=== PATIENT | female | born 1985 | race Caucasian/White ===

== ENCOUNTER 2017-01-04 00:41 | Emergency (ER) | payer OTHER ==
[~2017-01-04] VITALS: Ht 172.7 cm; Wt 120.0 kg
[2017-01-04 01:18] LABS: EOSINOPHIL (%) 0.9 % (0-5); EOSINOPHIL COUNT 0.2 K/uL (0-0.3); HEMATOCRIT 37.6 % (36.0-46.0); IMMATURE GRANULOCYTE (%) 1.3 % (0.0-0.7); IMMATURE GRANULOCYTE COUNT 0.2 K/uL; INSTRUMENT ABS NEUTROPHIL CT 15.6 K/uL; LYMPHOCYTE COUNT 1.7 K/uL (1.0-2.8); MCH 28.2 PG (29.0-34.0); MCHC 33.2 G/DL (30.0-36.0); MCV 84.9 FL (83-99); MEAN PLAT.VOLUME 11.1 uM^3 (9.5-12.4); MONOCYTE (%) 4.2 % (3-12); MONOCYTE COUNT 0.8 K/uL (0-0.8); NEUTROPHIL (%) 84.1 % (45-76); NEUTROPHIL COUNT 15.6 K/uL (1.8-6.4); PLATELET COUNT 224 K/uL (156-360); RBC DIS.WIDTH-CV 12.7 % (11.8-14.6); RBC DIS.WIDTH-SD 38.8 % (39-53); RED BLOOD COUNT 4.43 M/uL (3.80-5.20); WHITE BLOOD COUNT 18.5 K/uL (4.1-10.2)
[2017-01-04 01:28] LABS: CHLORIDE 107 mEq/L (99-109); POTASSIUM 3.9 mEq/L (3.7-5.4); SODIUM 138 mEq/L (136-147)
[2017-01-04 01:29] LABS: GLUCOSE 93 mg/dL (70-99)
[2017-01-04 01:31] LABS: ANION GAP 7 MEQ/L (2-14)
[2017-01-04 01:33] LABS: GFR ESTIMATE (CALCULATED) > 59 mL/min/
[2017-01-04 01:34] LABS: UREA NITROGEN (BUN) 7 mg/dL (9-23)
[2017-01-04 01:41] LABS: QUANTITATIVE HCG 7149.8 MIU/ML
[2017-01-04 02:16] VITALS: BP 121/67
== END 2017-01-04 02:17 | disposition home or self-care (01) ==
LOC: EME 00:41
PROVIDERS: Emergency Medicine
DX: O9A.212 Injury, poisoning and certain other consequences of external causes complicating pregnancy, second trimester (principal); T50.995A Adverse effect of other drugs, medicaments and biological substances, initial encounter; R23.2 Flushing; R00.2 Palpitations; O99.352 Diseases of the nervous system complicating pregnancy, second trimester; G35 Multiple sclerosis; O99.512 Diseases of the respiratory system complicating pregnancy, second trimester; J45.909 Unspecified asthma, uncomplicated; Z3A.26 26 weeks gestation of pregnancy
CPT/HCPCS: 76805; 80048; 84702; 85025; 93005; 99281; 99283

== ENCOUNTER 2017-04-11 05:40 | Inpatient (IN) | payer OTHER ==
[~2017-04-11] VITALS: Ht 172.7 cm; Wt 128.4 kg
[~2017-04-11 05:40] MED LIST: PRENATAL MULTI1 EAC7 PO; VITAMIN D34000 UNIT PO
[2017-04-11 06:01] VITALS: BP 123/77
[2017-04-11 07:15] VITALS: BP 118/81
[2017-04-11 10:39] VITALS: BP 124/75
[2017-04-11 15:08] VITALS: BP 129/65
[2017-04-11 19:30] VITALS: BP 123/60
[2017-04-11 22:45] VITALS: BP 129/76
[2017-04-12 02:51] VITALS: BP 118/75
[2017-04-12 06:15] LABS: EOSINOPHIL (%) 1.5 % (0-5); EOSINOPHIL COUNT 0.2 K/uL (0-0.3); HEMATOCRIT 35.3 % (36.0-46.0); IMMATURE GRANULOCYTE (%) 0.8 % (0.0-0.7); IMMATURE GRANULOCYTE COUNT 0.1 K/uL; LYMPHOCYTE COUNT 3.5 K/uL (1.0-2.8); MCH 28.7 PG (29.0-34.0); MCHC 33.7 G/DL (30.0-36.0); MCV 85.3 FL (83-99); MEAN PLAT.VOLUME 11.9 uM^3 (9.5-12.4); MONOCYTE (%) 6.4 % (3-12); MONOCYTE COUNT 0.7 K/uL (0-0.8); NEUTROPHIL (%) 60.4 % (45-76); PLATELET COUNT 208 K/uL (156-360); RBC DIS.WIDTH-CV 13.6 % (11.8-14.6); RED BLOOD COUNT 4.14 M/uL (3.80-5.20); WHITE BLOOD COUNT 11.6 K/uL (4.1-10.2)
[2017-04-12] MEDS ORDERED: DOCUSATE SODIU100 MG PO (06:42)
[2017-04-12] MEDS ORDERED: ENDOCET 5-3251 EACH PO (06:42)
[2017-04-12] MEDS ORDERED: IBUPROFEN800 MG PO (06:42)
[2017-04-12 08:00] VITALS: BP 118/73
[2017-04-12 11:30] VITALS: BP 126/74
[2017-04-12 14:38] VITALS: BP 126/84
[2017-04-12 19:14] VITALS: BP 131/63
[2017-04-12 23:13] VITALS: BP 132/83
[2017-04-13 02:55] VITALS: BP 109/67
[2017-04-13 07:25] VITALS: BP 140/83
[2017-04-13 15:06] VITALS: BP 135/77
== END 2017-04-13 19:50 | disposition home or self-care (01) | DRG 765 ==
LOC: 2WEST 05:40 → 2SOUTH 09:13 → 2WEST 04-13 19:50
PROVIDERS: Obstetrics & Gynecology
PROC: 10D00Z1 Extraction of Products of Conception, Low, Open Approach (ICD-10-PCS; principal; 2017-04-11)
DX: O34.211 Maternal care for low transverse scar from previous cesarean delivery (principal); O40.3XX0 Polyhydramnios, third trimester, not applicable or unspecified; O99.52 Diseases of the respiratory system complicating childbirth; D25.9 Leiomyoma of uterus, unspecified; O99.354 Diseases of the nervous system complicating childbirth; G35 Multiple sclerosis; O69.81X0 Labor and delivery complicated by cord around neck, without compression, not applicable or unspecified; Z3A.39 39 weeks gestation of pregnancy; Z37.0 Single live birth; O99.214 Obesity complicating childbirth; E66.9 Obesity, unspecified; Z68.39 Body mass index [BMI] 39.0-39.9, adult; O34.13 Maternal care for benign tumor of corpus uteri, third trimester; J45.909 Unspecified asthma, uncomplicated; Z82.49 Family history of ischemic heart disease and other diseases of the circulatory system
CPT/HCPCS: 36415; 85025; 86850; 86900; 86901; 90686; J0690; J1100; J1170; J1885; J2274; J2405; J3010; J7120